=== PATIENT | female | born 1960 | race Hispanic/Latino ===

== ENCOUNTER 2021-01-08 06:04 | Day surgery (SDC) | payer BC, OTHER ==
[~2021-01-08] VITALS: Ht 147.3 cm; Wt 61.4 kg
[~2021-01-08 06:04] MED LIST: ATORVASTATIN CA40 MG PO; BAYER CHEWABLE81 MG PO; CELEBREX200 MG PO; METFORMIN HCL500 MG PO
--- NOTE | 2021-01-08 08:08 | NUR ---
01/08/21 0808 Anali Tracey 0800 PT TO PACU ASLEEP SHE RESPONDS TO STIMULI BUT OTHER GOOD ASLEEP.
--- NOTE | 2021-01-08 08:42 | OR ---
[facility] [address], [place] [address] Signed DATE OF OPERATION: 01/08/2021 SURGEON: Bertha Araya MD PREOPERATIVE DIAGNOSIS: Screening. POSTOPERATIVE DIAGNOSIS: Minimal to moderate internal hemorrhoids. PROCEDURES: Colonoscopy without biopsy. ESTIMATED BLOOD LOSS: None. INDICATIONS: Ashwin is a 60-year-old female who is originally from [place]. She speaks her [place] tongue. Her son always comes with her to help interpret. She had been seeing her invisible braces orthodontist earlier this year. He recommended her initial screening colonoscopy. She has no lower GI complaints. She has no family history of colon cancer or polyps to her knowledge. There is no family history of inflammatory bowel disease. With her son helping to interpret, I gave them booklets on colonoscopy. We reviewed that in detail. She understands the nature of the test. We reviewed the risks including, but not limited to gas bloating, crampy abdominal pain, bleeding, perforation requiring surgery, and missed diagnosis. We also reviewed the need for IV conscious sedation. She had expressed understanding and wished to proceed. PROCEDURE NOTE: Ashwin was taken into our endoscopy suite and placed in the left lateral decubitus position. She was given 2 mg of Versed and 100 mcg of fentanyl to cover the case. A digital rectal exam was performed, she had very minimal if any external hemorrhoid tissue. She had good sphincter tone. No masses. The adult colonoscope was introduced and advanced under direct visualization of camera up into the cecum itself. Her prep was quite excellent. We could easily see the appendiceal orifice and ileocecal valve. The scope was then slowly withdrawn. She had no pathology throughout the entire colon or rectum. Upon retroflexion of scope, she has minimal to moderate internal hemorrhoid columns. After this, the gas was suctioned out and the colonoscope removed. Ashwin tolerated the procedure quite well. Electronically Signed By: BERTHA ARAYA MD 01/08/21 0842 PATIENT NAME: ASHWIN TAN OPERATIVE REPORT DATE OF : 60 REPORT #: [id number] PHYSICIAN: BERTHA ARAYA MD PCP: DOTTY SNELL MD REPORT IS CONFIDENTIAL AND NOT TO BE RELEASED WITHOUT AUTHORIZATION [facility] [address], [place] [address] Signed RECOMMENDATIONS: Ashwin can follow up in 10 years for repeat colonoscopy. Bertha Araya MD ALB/MODL /[id number] cc: MD Dotty Rosales MD Andrew L Bower, MD Copies: EITAN GLEZ MD, ANDREW L MD ~ Electronically Signed By: BERTHA ARAYA MD 01/08/21 0842 PATIENT NAME: ASHWIN TAN OPERATIVE REPORT DATE OF : 60 REPORT #: [id number] PHYSICIAN: BERTHA ARAYA MD PCP: DOTTY SNELL MD REPORT IS CONFIDENTIAL AND NOT TO BE RELEASED WITHOUT AUTHORIZATION
--- NOTE | 2021-01-08 09:20 | NUR ---
0915: PT RETURNS TO UNIT ROOM 8 VIA STRETCHER FROM PACU. REMAINS TOO DROWSY FOR DC AT THIS TIME. VSS, RESP EVEN AND UNLABORED ON RA. ANSWERS QUESTIONS APPROPRIATELY AND THEN FALLS BACK ASLEEP. DENIES PAIN AND NAUSEA. NO NEEDS, CALL LIGHT WITHIN REACH. ICE WATER PROVIDED
--- NOTE | 2021-01-08 10:39 | NUR ---
1017: PATIENT AWAKENED FOR VS CHECK. DENIES PAIN. PATIENT MORE AWAKE AND ALERT. PATIENT ASSISTED TO SIT ON SIDE OF BED AND GET DRESSED. PATIENT ASSISTED OOB. 1030: IV DC'D WNL. TIP INTACT. DRESSING APPLIED. DISCHARGE INSTRUCTIONS GIVEN TO PATIENT AND SON. 1035: PATIENT DISCHARGED TO HOME VIA WHEELCHAIR WITH SON.
== END 2021-01-08 10:35 | disposition home or self-care (01) ==
LOC: DS 06:04 → OPS 06:04 → DS 06:45 → OPS 10:35
PROVIDERS: ATTEND Colon & Rectal Surgery
PROC: 0DJD8ZZ Inspection of Lower Intestinal Tract, Via Natural or Artificial Opening Endoscopic (ICD-10-PCS; principal; 2021-01-08 06:45)
DX: Z12.11 Encounter for screening for malignant neoplasm of colon (principal); K64.8 Other hemorrhoids; M19.90 Unspecified osteoarthritis, unspecified site; E78.00 Pure hypercholesterolemia, unspecified; E11.9 Type 2 diabetes mellitus without complications; Z79.84 Long term (current) use of oral hypoglycemic drugs; Z20.822 Contact with and (suspected) exposure to COVID-19
CPT/HCPCS: 99153; G0500; J2250; J3010; J7121